=== PATIENT | female | born 1970 | race Hispanic/Latino ===

== ENCOUNTER 2017-10-14 18:56 | Emergency (ER) | payer BC, OTHER ==
[~2017-10-14] VITALS: Ht 160 cm; Wt 64.9 kg
[2017-10-14] MEDS ORDERED: ACETAMINOPHEN 325 MG TAB PO ONE (19:00)
[2017-10-14] MEDS ORDERED: IBUPROFEN 600 MG TAB PO STA (19:00)
[2017-10-14 21:20] VITALS: BP 101/82
== END 2017-10-14 21:23 | disposition home or self-care (01) ==
LOC: FSED 18:56
DX: J11.1 Influenza due to unidentified influenza virus with other respiratory manifestations (principal); Z85.3 Personal history of malignant neoplasm of breast; Z90.13 Acquired absence of bilateral breasts and nipples
CPT/HCPCS: 85025; 87400; 99283